=== PATIENT | male | born 1970 | race African-American/Black ===

== ENCOUNTER 2021-10-09 19:12 | Emergency (ER) | payer OTHER ==
[2021-10-09] MEDS ORDERED: NA CHLORIDE 0.9% 1,000 ML ONE (20:39)
[2021-10-09 20:46] LABS: Absolute Lymphocytes (CBC) 1.9 K/uL (0.7-4.9); Hematocrit 42.6 % (39.6-49.0); Lymphocytes % 29.9 % (15.3-44.8); MPV 8.1 fL (7.6-11.3); RBC Red Blood Cell Count 4.88 M/uL (4.33-5.43)
[2021-10-09 21:03] LABS: ALT/SGPT 36 U/L (12-78); Albumin 3.7 g/dL (3.4-5.0); Alkaline Phosphatase 75 U/L (45-117); BUN Blood Urea Nitrogen 17 mg/dL (7-18); Bicarbonate 26 mmol/L (21-32); Bilirubin Total 0.3 mg/dL (0.2-1.0); Glucose Level 135 mg/dL (74-106); Protein, Total 6.8 g/dL (6.4-8.2); Sodium Level 140 mmol/L (136-145)
[2021-10-09 21:08] LABS: AST/SGOT 26 U/L (15-37)
[2021-10-09 21:55] LABS: Urine Blood Negative (Negative); Urine Glucose Negative (Negative); Urine Protein Trace (Negative); Urine Specific Gravity >=1.030 (1.005-1.030); Urine pH 6.5 (5.0-7.0)
--- NOTE | 2021-10-09 22:30 | EDPHYS ---
Physician Documentation [facility] Name: Fransisco Serrano Age: 51 yrs Sex: Male : 1970 Arrival Date: 10/09/2021 Time: 19:14 Bed 3 Private MD: ED Physician Aniket Pa HPI: 10/09 20:02 This 51 yrs old Black Male presents to ER via EMS with complaints of HOT GLYCOL VO tara AT WORK. 20:02 The patient presents with a burn as a result of a chemical exposure, GLYCOL, HOT 310F. tara Onset: The symptoms/episode began/occurred just prior to arrival. Burn type and severity: 1st degree: approximately 3% total body surface area of 1st degree injury, 2nd degree: approximately 3% total body surface area of second degree injury. Associated signs and symptoms: none. The patient has not experienced similar symptoms in the past. Historical: - Allergies: 19:20 No Known Allergies; al4 - Immunization history:: Adult Immunizations up to date, Client reports receiving the 1st dose of the Covid vaccine. - Social history:: Smoking status: Patient denies any tobacco usage or history of. - Family history:: not pertinent. ROS: 20:02 Constitutional: Negative for fever, chills, and weight loss, Eyes: Negative for injury, tara pain, redness, and discharge, ENT: Negative for injury, pain, and discharge, Neck: Negative for injury, pain, and swelling, Cardiovascular: Negative for chest pain, palpitations, and edema, Respiratory: Negative for shortness of breath, cough, wheezing, and pleuritic chest pain, Abdomen/GI: Negative for abdominal pain, nausea, vomiting, diarrhea, and constipation, Back: Negative for injury and pain, : Negative for injury, bleeding, discharge, and swelling, MS/Extremity: Negative for injury and deformity, Neuro: Negative for headache, weakness, numbness, tingling, and seizure, Psych: Negative for depression, anxiety, suicide ideation, homicidal ideation, and hallucinations, Allergy/Immunology: Negative for hives, rash, and allergies, Endocrine: Negative for neck swelling, polydipsia, polyuria, polyphagia, and marked weight changes, Hematologic/Lymphatic: Negative for swollen nodes, abnormal bleeding, and unusual bruising. 20:02 Skin: Positive for burn, of the neck, right arm, left arm, back of left arm, back of right arm and posterior chest. Exam: 20:02 Constitutional: This is a well developed, well nourished patient who is awake, alert, tara and in no acute distress. Head/Face: Normocephalic, atraumatic. Eyes: Pupils equal round and reactive to light, extra-ocular motions intact. Lids and lashes normal. Conjunctiva and sclera are non-icteric and not injected. Cornea within normal limits. Periorbital areas with no swelling, redness, or edema. ENT: Nares patent. No nasal discharge, no septal abnormalities noted. Tympanic membranes are normal and external auditory canals are clear. Oropharynx with no redness, swelling, or masses, exudates, or evidence of obstruction, uvula midline. Mucous membranes moist. Neck: Trachea midline, no thyromegaly or masses palpated, and no cervical lymphadenopathy. Supple, full range of motion without nuchal rigidity, or vertebral point tenderness. No Meningismus. Chest/axilla: Normal chest wall appearance and motion. Nontender with no deformity. No lesions are appreciated. Cardiovascular: Regular rate and rhythm with a normal S1 and S2. No gallops, murmurs, or rubs. Normal PMI, no JVD. No pulse deficits. Respiratory: Lungs have equal breath sounds bilaterally, clear to auscultation and percussion. No rales, rhonchi or wheezes noted. No increased work of breathing, no retractions or nasal flaring. Abdomen/GI: Soft, non-tender, with normal bowel sounds. No distension or tympany. No guarding or rebound. No evidence of tenderness throughout. Back: No spinal tenderness. No costovertebral tenderness. Full range of motion. Male : Normal genitalia with no discharge or lesions. Neuro: Awake and alert, GCS 15, oriented to person, place, time, and situation. Cranial nerves II-XII grossly intact. Motor strength 5/5 in all extremities. Sensory grossly intact. Cerebellar exam normal. Normal gait. Psych: Awake, alert, with orientation to person, place and time. Behavior, mood, and affect are within normal limits. 20:02 Skin: injury, burn(s), 1st degree burn injury covers approximately 3% of the total body surface area, and is located on the right supraclavicular area and left supraclavicular area, 2nd degree burn injury covers approximately 3% of the total body surface area, and is located on the right arm and left arm. Vital Signs: 19:15 BP 155 / 104; Pulse 104; Resp 19; Temp 99.1(O); Pulse Ox 96% ; Weight 127.01 kg; Height al4 5 ft. 10 in. (177.80 cm); Pain 5/10; 20:15 BP 153 / 106; Pulse 93; Resp 19 S; Pulse Ox 96% on R/A; al4 21:15 BP 143 / 102; Pulse 82; Resp 18 S; Pulse Ox 97% on R/A; al4 22:00 BP 155 / 90; Pulse 77; Resp 18; Pulse Ox 97% on R/A; al4 19:15 Body Mass Index 40.18 (127.01 kg, 177.80 cm) al4 MDM: 19:24 Patient medically screened. tara 20:02 Differential diagnosis: 1st degree vo, 2nd degree vo. Data reviewed: vital signs, [facility] nurses notes, lab test result(s), CBC, electrolytes, hepatic panel, urinalysis. 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 Test interpretation: by ED physician or midlevel provider:. Counseling: I had a detailed discussion with the patient and/or guardian regarding: the historical points, exam findings, and any diagnostic results supporting the discharge/admit diagnosis, lab results. 22:28 ED course: ginny melara ph 7-8. will reshower x 20 min , cover with neosporin , follow tara up dane burn 1200 pm tomorrow. 10/09 20:01 Order name: CBC with Diff; Complete Time: 21:33 tara 10/09 20:01 Order name: Comprehensive Metabolic Panel; Complete Time: 21:33 tara 10/09 20:01 Order name: Jason. Order: saline guaze to areas; Complete Time: 23:49 tara 10/09 21:55 Order name: Urine Dipstick-Ancillary EDMS 10/09 20:01 Order name: Urine Dipstick-Ancillary (obtain specimen); Complete Time: 21:54 tara 10/09 20:01 Order name: Cammyc. Order: call poison control; Complete Time: 20:19 tara 10/09 20:02 Order name: Jason. Order: get MSDS SHEET, FOLLOW; Complete Time: 20:28 [facility] 10/09 21:37 Order name: Jason. Order: rupture blisters; Complete Time: 22:29 [facility] 10/09 22:28 Order name: Jason. Order: repeat shower 20 min; Complete Time: 23:14 tara Administered Medications: 23:49 Discontinued: NS 0.9% 1000 ml IV at 125 ml/hr continuous al4 20:40 Drug: NS 0.9% 1000 ml Route: IV; Rate: 125 ml/hr; Site: right antecubital; al4 23:30 Drug: Neosporin (kqikeaku-xnzhqhfeni-ofdqkpefo) Ointment 1 application Route: Topical; al4 Site: wound; Disposition Summary: 10/09/21 22:30 Discharge Ordered Location: Home tara Problem: new tara Symptoms: have improved tara Condition: Stable tara Diagnosis - Vo involving less than 10% of body surface - 2nd ansd 1st vo, shoulders, tara bilateral forearms Followup: tara - With: Private Physician - When: Tomorrow - Reason: Recheck today's complaints, Continuance of care, Re-evaluation by your physician Discharge Instructions: - Discharge Summary Sheet tara - Burn Care, Adult tara - Chemical Burn, Adult tara - Chemical Burn, Adult, Sixi-ui-Avuk tara - Burn Care, Adult, [id number] tara Forms: - Medication Reconciliation Form tara - Thank You Letter tara - Antibiotic Education tara - Prescription Opioid Use tara - Family Work Release al4 Signatures: Dispatcher [employer] Aniket Oliver MD MD cha Ledbetter, Alexis al4
--- NOTE | 2021-10-09 22:30 | ER ---
Nurse's Notes [facility] Name: Fransisco Serrano Age: 51 yrs Sex: Male : 1970 Arrival Date: 10/09/2021 Time: 19:14 Bed 3 Private MD: Diagnosis: Castaneda involving less than 10% of body surface-2nd ansd 1st castaneda, shoulders, bilateral forearms Presentation: 10/09 19:15 Chief complaint: EMS states: patient was at work when a vessel over pressurized. al4 patient got sprayed with triethylene glycol - burn spots on shoulders and arms. patient refused an IV in transport. Coronavirus screen: Vaccine status: Patient reports receiving the 1st dose of the Covid vaccine. august. Ebola Screen: No symptoms or risks identified at this time. Initial Sepsis Screen: Does the patient meet any 2 criteria? HR > 90 bpm. No. Patient's initial sepsis screen is negative. Does the patient have a suspected source of infection? No. Patient's initial sepsis screen is negative. Risk Assessment: Do you want to hurt yourself or someone else? Patient reports no desire to harm self or others. Onset of symptoms was October 09, 2021. 19:15 Method Of Arrival: EMS al4 19:15 Acuity: EMIGDIO 3 al4 Triage Assessment: 19:20 General: Appears in no apparent distress. Behavior is calm, cooperative. Pain: al4 Complains of pain in right arm and left arm Pain currently is 5 out of 10 on a pain scale. Neuro: Level of Consciousness is awake, alert, obeys commands, Oriented to person, place, time, situation. Cardiovascular: Patient's skin is warm and dry. Respiratory: Airway is patent Respiratory effort is unlabored. Derm: Wound noted anterior aspect of right shoulder and posterior aspect of right shoulder Wound is burn. 19:20 Injury Description: Patient sustained second-degree burn(s) to . BL shoulders and L arm.al4 Historical: - Allergies: 19:20 No Known Allergies; al4 - Immunization history:: Adult Immunizations up to date, Client reports receiving the 1st dose of the Covid vaccine. - Social history:: Smoking status: Patient denies any tobacco usage or history of. - Family history:: not pertinent. Screenin:43 Abuse screen: Denies threats or abuse. Nutritional screening: No deficits noted. al4 Tuberculosis screening: No symptoms or risk factors identified. Fall Risk No fall in past 12 months (0 pts). IV access (20 points). Ambulatory Aid- None/Bed Rest/Nurse Assist (0 pts). Gait- Normal/Bed Rest/Wheelchair (0 pts) Mental Status- Oriented to own ability (0 pts). Total [place] Fall Scale indicates No Risk (0-24 pts). 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 20:07 Reassessment: POISON CONTROL CASE #: [id number] - RN spoke to Saskia from [facility] Recommendations are as follows: open blister to prevent chemical from getting trapped, perform wound debridement or burn care according to MD discretion. Use local or oral opiates for pain control. 20:25 Reassessment: MSDS sheet found and reviewed by SANDRA Irene and SANDRA Brewster. First Aid al4 Measures have been completed according to the MSDS sheet. Dr. Pa notified. 20:41 Reassessment: Patient appears in no apparent distress at this time. Patient and/or al4 family updated on plan of care and expected duration. Pain level reassessed. Patient denies pain at this time. patient aware of the need for urine sample - states "I will try after I speak to him" pointing at a visitor in the room. . 22:00 Reassessment: Patient appears in no apparent distress at this time. Patient is alert, al4 oriented x 3, equal unlabored respirations, skin warm/dry/pink. 22:30 Reassessment: patient walked to shower by KATELYN GARZA. al4 23:00 Reassessment: discharge ordered - waiting for MD to see patient again and RN to dress al4 wounds before discharge. 23:13 Reassessment: Patient appears in no apparent distress at this time. Patient and/or al4 family updated on plan of care and expected duration. Pain level reassessed. Vital Signs: 19:15 BP 155 / 104; Pulse 104; Resp 19; Temp 99.1(O); Pulse Ox 96% ; Weight 127.01 kg; Height al4 5 ft. 10 in. (177.80 cm); Pain 5/10; 20:15 BP 153 / 106; Pulse 93; Resp 19 S; Pulse Ox 96% on R/A; al4 21:15 BP 143 / 102; Pulse 82; Resp 18 S; Pulse Ox 97% on R/A; al4 22:00 BP 155 / 90; Pulse 77; Resp 18; Pulse Ox 97% on R/A; al4 19:15 Body Mass Index 40.18 (127.01 kg, 177.80 cm) al4 ED Course: 19:14 Patient arrived in ED. as6 19:20 Triage completed. al4 19:24 Aniket Pa MD is Attending Physician. tara 19:24 Patient placed in an exam room, on a stretcher. al4 19:36 Delvin Hernandez, RN is Primary Nurse. as6 20:36 Inserted saline lock: 20 gauge in right antecubital area, using aseptic technique. as6 Blood collected. 20:36 Comprehensive Metabolic Panel Sent. as6 20:36 CBC with Diff Sent. as6 21:00 Patient has correct armband on for positive identification. Bed in low position. Side al4 rails up X2. 23:44 No provider procedures requiring assistance completed. IV discontinued, intact, al4 bleeding controlled, No redness/swelling at site. Pressure dressing applied. Administered Medications: 23:49 Discontinued: NS 0.9% 1000 ml IV at 125 ml/hr continuous al4 20:40 Drug: NS 0.9% 1000 ml Route: IV; Rate: 125 ml/hr; Site: right antecubital; al4 23:30 Drug: Neosporin (oplnptig-bstenayuus-uucksvsup) Ointment 1 application Route: Topical; al4 Site: wound; Outcome: 22:30 Discharge ordered by . [facility] 23:44 Discharged to home ambulatory, with family. al4 23:44 Condition: stable 23:44 Discharge instructions given to patient, family, Instructed on discharge instructions, follow up and referral plans. Demonstrated understanding of instructions, follow-up care. 23:51 Patient left the ED. al4 Signatures: Aniket Pa MD MD cha Slawson, Ashby, RN RN as6 [place] al4 Corrections: (The following items were deleted from the chart) 19:24 19:20 Derm: Wound noted anterior aspect of right shoulder and posterior aspect of right al4 shoulder Wound is lio al4 20:07 19:20 Injury Description: al4 al4 20:29 20:25 Reassessment: MSDS sheet found and reviewed by SANDRA Irene and SANDRA Brewster. First al4 Aid Measures have been completed according to the MSDS sheet. al4 20:55 20:41 Reassessment: Patient appears in no apparent distress at this time. Patient al4 and/or family updated on plan of care and expected duration. Pain level reassessed. Patient denies pain at this time. al4 22:44 22:43 Patient has correct armband on for positive identification. Bed in low position. al4 Side rails up X2. al4 23:54 19:20 Pain: Complains of pain in anterior aspect of right shoulder and posterior aspect al4 of right shoulder Pain currently is 5 out of 10 on a pain scale. al4
[2021-10-09] MEDS ORDERED: BACI/NEOMYCIN/POLY OINT 15GM TOP ONE (22:58)
[2021-10-10 00:45] VITALS: TEMP 99.1
[2021-10-10 00:47] VITALS: O2SAT 97
[2021-10-10 00:49] VITALS: BP 155/90
== END 2021-10-09 23:51 | disposition home or self-care (01) ==
LOC: ER 19:12
DX: T22.252A Burn of second degree of left shoulder, initial encounter (principal); T22.251A Burn of second degree of right shoulder, initial encounter; T22.212A Burn of second degree of left forearm, initial encounter; T22.211A Burn of second degree of right forearm, initial encounter; T31.0 Burns involving less than 10% of body surface; X12.XXXA Contact with other hot fluids, initial encounter
CPT/HCPCS: 36415; 80053; 81003; 85025; 99284; J7030